=== PATIENT | female | born 1945 | race Caucasian/White ===

== ENCOUNTER 2017-04-12 07:08 | Inpatient (IN) ==
[2017-04-12] MEDS ORDERED: DILTIAZEM 50 MG/10 ML VIAL IV STA (07:24)
[2017-04-12] MEDS ORDERED: DILTIAZEM 100 MG VIAL.ADD IV ONE (07:34)
[2017-04-12] MEDS ORDERED: SODIUM CHLORIDE 0.9% 100 ML IV ONE (07:34)
[2017-04-12] MEDS ORDERED: DILTIAZEM 50 MG/10 ML VIAL IV ONE (07:34)
[2017-04-12 07:37] LABS: Basophils # 0.1 10*3/uL (0.0-0.2); Basophils % 1.1 % (0.0-0.8); Eosinophils # 0.2 10*3/uL (0.0-0.87); Eosinophils % 2.6 % (0.00-10.9); Hemoglobin 14.9 GM/DL (12.0-16.0); Immature Granulocytes % 0.1 %; Immature Granulocytes Absolute 0.01 #; Lymphocytes # 2.8 10*3/uL (1.4-4.0); Mean Corpuscular HGB Conc 34.7 GM/DL (32-36); Mean Corpuscular Hemoglobin 29 PG (27-34); Mean Corpuscular Volume 84.8 FL (87-102); Mean Platelet Volume 11.2 FL (9.6-12.0); Monocytes # 0.7 10*3/uL (0.11-0.8); Monocytes % 9.1 % (1.7-12.7); Neutrophils # 3.8 10*3/uL (1.4-7.4); Neutrophils % 50.1 % (38.7-73.9); Platelet Count 171 T/CUMM (130-400); Red Blood Count 5.07 MC/CUMM (3.8-5.5); Red Cell Distribution Width 12.7 % (9.3-17.3); White Blood Count 7.6 T/CUMM (4-12)
[2017-04-12] MEDS: DILTIAZEM INJ 100 MG in SODIUM CHLORIDE 0.9% 100 ML IV SCH (08:00)
[2017-04-12 08:11] LABS: Alanine Aminotransferase 43 U/L (13-56); Albumin 3.6 G/DL (3.4-5.0); Alkaline Phosphatase 73 U/L (45-117); Aspartate Amino Transferase 31 U/L (0-37); Blood Urea Nitrogen 20 MG/DL (7-18); Calcium 9.1 MG/DL (8.5-10.1); Glucose 107 MG/DL (74-106); Osmolality,Calculated 290.7 MOS/KG (273-304); Potassium 4.2 MMOL/L (3.5-5.1); Sodium 145 MMOL/L (136-145); Total Protein 6.4 G/DL (6.4-8.3); Troponin I Only < 0.015 NG/ML (0.00-0.045)
[2017-04-12] MEDS ORDERED: MORPHINE 2 MG/1 ML SYRINGE IV PRN (08:26)
[2017-04-12] MEDS ORDERED: ZALEPLON 5 MG CAPSULE PO PRN (08:26)
[2017-04-12] MEDS ORDERED: MAGNESIUM SULF RIDER 4 GM in PREMIX 1 EACH IV PRN (08:26)
[2017-04-12] MEDS ORDERED: ONDANSETRON 4 MG/2 ML VIAL IV PRN (08:26)
[2017-04-12] MEDS ORDERED: MAGNESIUM SULF RIDER 2 GM in PREMIX 1 EACH IV PRN (08:26)
[2017-04-12] MEDS ORDERED: DILTIAZEM INJ 100 MG in SODIUM CHLORIDE 0.9% 100 ML IV SCH (08:30)
[2017-04-12 12:15] LABS: Troponin I Only < 0.015 NG/ML (0.00-0.045)
[2017-04-12] MEDS: APIXABAN 5 MG TABLET PO SCH ×2 (12:45→21:36)
[2017-04-12] MEDS: DEXTROSE 5% NACL 0.9% 1,000 ML IV SCH ×2 (12:45→22:54)
[2017-04-12] MEDS: SOTALOL 80 MG TABLET PO SCH ×2 (14:53→21:36)
[2017-04-12 14:57] LABS: Troponin I Only < 0.015 NG/ML (0.00-0.045)
[2017-04-13] MEDS: DILTIAZEM INJ 100 MG in SODIUM CHLORIDE 0.9% 100 ML IV SCH ×2 (05:02→08:47)
[2017-04-13] MEDS: DEXTROSE 5% NACL 0.9% 1,000 ML IV SCH ×2 (05:05→12:27)
[2017-04-13 06:11] LABS: VLDL CHOLESTEROL 43.6 MG/DL
[2017-04-13] MEDS: APIXABAN 5 MG TABLET PO SCH ×2 (09:49→20:28)
[2017-04-13] MEDS: SOTALOL 80 MG TABLET PO SCH ×2 (09:49→20:28)
[2017-04-13] MEDS ORDERED: CETIRIZINE 5 MG TABLET PO PRN (15:30)
[2017-04-13] MEDS ORDERED: diphenhydrAMINE CAP 25 MG CAPSULE PO PRN (16:33)
[2017-04-13] MEDS ORDERED: guaiFENesin/DM ER 600-30 MG TABLET PO PRN (16:33)
[2017-04-13] MEDS ORDERED: BISACODYL 5 MG TABLET PO PRN (16:33)
[2017-04-13] MEDS ORDERED: ACETAMINOPHEN 325 MG TABLET PO PRN (16:33)
[2017-04-13] MEDS: GABAPENTIN 100 MG CAPSULE PO SCH (20:28)
[2017-04-14] MEDS: DEXTROSE 5% NACL 0.9% 1,000 ML IV SCH (00:54)
[2017-04-14 05:40] LABS: Basophils # 0.1 10*3/uL (0.0-0.2); Basophils % 0.8 % (0.0-0.8); Eosinophils # 0.2 10*3/uL (0.0-0.87); Eosinophils % 3.2 % (0.00-10.9); Hematocrit 39.8 VOL% (35.7-47.0); Hemoglobin 13.5 GM/DL (12.0-16.0); Immature Granulocytes % 0.3 %; Immature Granulocytes Absolute 0.02 #; Lymphocytes # 2.9 10*3/uL (1.4-4.0); Lymphocytes % 40.8 % (21.3-54.2); Mean Corpuscular HGB Conc 33.9 GM/DL (32-36); Mean Corpuscular Hemoglobin 29 PG (27-34); Mean Corpuscular Volume 85.4 FL (87-102); Mean Platelet Volume 11.9 FL (9.6-12.0); Monocytes # 0.6 10*3/uL (0.11-0.8); Monocytes % 8.5 % (1.7-12.7); Neutrophils # 3.3 10*3/uL (1.4-7.4); Neutrophils % 46.4 % (38.7-73.9); Platelet Count 165 T/CUMM (130-400); Red Blood Count 4.66 MC/CUMM (3.8-5.5); Red Cell Distribution Width 12.5 % (9.3-17.3); White Blood Count 7.1 T/CUMM (4-12)
[2017-04-14 06:09] LABS: Calcium 8.9 MG/DL (8.5-10.1); Magnesium 2.2 MG/DL (1.8-2.4); Osmolality,Calculated 286.7 MOS/KG (273-304); Potassium 5.2 MMOL/L (3.5-5.1)
[2017-04-14] MEDS: SOTALOL 80 MG TABLET PO SCH (08:49)
[2017-04-14] MEDS: APIXABAN 5 MG TABLET PO SCH (08:49)
[2017-04-14] MEDS: GABAPENTIN 100 MG CAPSULE PO SCH ×2 (08:49→08:51)
[2017-04-14] MEDS: DILTIAZEM INJ 100 MG in SODIUM CHLORIDE 0.9% 100 ML IV SCH (08:50)
[2017-04-14] MEDS ORDERED: GLUCOSAMINE 500 MG TABLET PO SCH (09:00)
[2017-04-14] MEDS ORDERED: OMEGA 3 ACID ETHYL ESTERS 1 GM CAPSULE PO SCH (09:00)
[2017-04-14] MEDS ORDERED: MULTIVITAMIN (BEROCCA) TABLET PO SCH (09:00)
[2017-04-14] MEDS ORDERED: PANTOPRAZOLE 40 MG TABLET PO SCH (09:00)
[2017-04-14] MEDS ORDERED: LEVOTHYROXINE 50 MCG TABLET PO SCH (09:00)
[2017-04-14 12:13] VITALS: BP 120/74
== END 2017-04-14 14:07 | disposition home or self-care (01) | DRG 310 ==
LOC: N.ED 07:08 → N.EDINP 08:26 → N.TELEN 10:17
PROVIDERS: ADMIT Internal Medicine Cardiovascular Disease; ATTEND Internal Medicine Cardiovascular Disease

== ENCOUNTER 2017-07-25 21:21 | Observation (INO) ==
[2017-07-25] MEDS ORDERED: DILTIAZEM 50 MG/10 ML VIAL IV STA (21:50)
[2017-07-25 22:05] LABS: Basophils # 0.1 10*3/uL (0.0-0.2); Basophils % 0.8 % (0.0-0.8); Eosinophils # 0.2 10*3/uL (0.0-0.87); Eosinophils % 1.6 % (0.00-10.9); Hematocrit 41.6 VOL% (35.7-47.0); Hemoglobin 14.1 GM/DL (12.0-16.0); Immature Granulocytes % 0.2 %; Immature Granulocytes Absolute 0.02 #; Lymphocytes # 3.4 10*3/uL (1.4-4.0); Lymphocytes % 32.9 % (21.3-54.2); Mean Corpuscular HGB Conc 33.9 GM/DL (32-36); Mean Corpuscular Hemoglobin 29 PG (27-34); Mean Corpuscular Volume 86.3 FL (87-102); Mean Platelet Volume 11.3 FL (9.6-12.0); Monocytes # 0.9 10*3/uL (0.11-0.8); Monocytes % 8.4 % (1.7-12.7); Neutrophils # 5.8 10*3/uL (1.4-7.4); Neutrophils % 56.1 % (38.7-73.9); Platelet Count 194 T/CUMM (130-400); Red Blood Count 4.82 MC/CUMM (3.8-5.5); Red Cell Distribution Width 12.6 % (9.3-17.3); White Blood Count 10.3 T/CUMM (4-12)
[2017-07-25 22:13] LABS: PT Patient Result 10.1 SECS; Partial Thromboplastin Time 27.9 SECS (0-40)
[2017-07-25 22:40] LABS: Alanine Aminotransferase 36 U/L (13-56); Albumin 3.6 G/DL (3.4-5.0); Alkaline Phosphatase 85 U/L (45-117); Aspartate Amino Transferase 34 U/L (0-37); Bilirubin,Total < 0.39 MG/DL (0.2-1.0); Blood Urea Nitrogen 15 MG/DL (7-18); Glucose 129 MG/DL (74-106); Osmolality,Calculated 281.4 MOS/KG (273-304); Potassium 3.2 MMOL/L (3.5-5.1); Sodium 140 MMOL/L (136-145); Total Protein 6.8 G/DL (6.4-8.3)
[2017-07-25 22:42] LABS: Troponin I Only < 0.015 NG/ML (0.00-0.045)
[2017-07-25 22:48] LABS: T4 (Thyroxine) 10.4 UG/DL (4.7-13.3); Thyroid Stimulating Hormone 2.25 uIU/ml (0.358-3.74)
[2017-07-25] MEDS ORDERED: DILTIAZEM INJ 100 MG in SODIUM CHLORIDE 0.9% 100 ML IV SCH (23:00)
[2017-07-25] MEDS ORDERED: SODIUM CHLORIDE 0.9% 100 ML IV ONE (23:59)
[2017-07-26] MEDS ORDERED: MAGNESIUM SULF RIDER 2 GM in PREMIX 1 EACH IV PRN (00:45)
[2017-07-26] MEDS ORDERED: MAGNESIUM SULF RIDER 4 GM in PREMIX 1 EACH IV PRN (00:45)
[2017-07-26] MEDS ORDERED: ONDANSETRON 4 MG/2 ML VIAL IV PRN (00:45)
[2017-07-26] MEDS ORDERED: POTASSIUM CHLORIDE 20 MEQ TABLET PO STA (00:58)
[2017-07-26] MEDS: PANTOPRAZOLE 40 MG TABLET PO SCH (08:24)
[2017-07-26] MEDS ORDERED: CETIRIZINE 10 MG TABLET PO PRN (12:17)
[2017-07-26] MEDS: SOTALOL 80 MG TABLET PO SCH ×2 (12:46→21:14)
[2017-07-26] MEDS: ESTROGENS (CONJ) 0.3 MG TABLET PO SCH (12:46)
[2017-07-26] MEDS: DILTIAZEM CD 120 MG CAPSULE PO SCH (12:46)
[2017-07-26] MEDS: GABAPENTIN 100 MG CAPSULE PO SCH ×2 (12:47→21:14)
[2017-07-26] MEDS: APIXABAN 5 MG TABLET PO SCH ×2 (12:48→21:14)
[2017-07-26] MEDS: LEVOTHYROXINE 50 MCG TABLET PO SCH (12:48)
[2017-07-26] MEDS: NITROFURANTOIN MACRO/MONO 100 MG CAPSULE PO SCH ×2 (12:48→21:14)
[2017-07-26] MEDS: NAPROXEN 250 MG TABLET PO SCH (21:14)
[2017-07-27] MEDS ORDERED: FOLIC ACID PO SCH (09:00)
[2017-07-27] MEDS ORDERED: CYANOCOBALAMIN PO SCH (09:00)
[2017-07-27] MEDS ORDERED: OMEGA PO SCH (09:00)
[2017-07-27] MEDS ORDERED: DHA PO SCH (09:00)
[2017-07-27] MEDS ORDERED: Gluc Su/Chondro Su A/Vit C/Mn [Glucosamine Chondroitin Tab] 1 EA PO SCH (09:00)
[2017-07-27] MEDS ORDERED: EPA PO SCH (09:00)
[2017-07-27] MEDS ORDERED: PYRIDOXINE PO SCH (09:00)
[2017-07-27] MEDS ORDERED: FISH OIL PO SCH (09:00)
[2017-07-27] MEDS: SOTALOL 80 MG TABLET PO SCH (09:12)
[2017-07-27] MEDS: DILTIAZEM CD 120 MG CAPSULE PO SCH (09:12)
[2017-07-27] MEDS: GABAPENTIN 100 MG CAPSULE PO SCH (09:13)
[2017-07-27] MEDS: APIXABAN 5 MG TABLET PO SCH (09:13)
[2017-07-27] MEDS: NITROFURANTOIN MACRO/MONO 100 MG CAPSULE PO SCH (09:13)
[2017-07-27] MEDS: NAPROXEN 250 MG TABLET PO SCH (09:13)
[2017-07-27] MEDS: ESTROGENS (CONJ) 0.3 MG TABLET PO SCH (09:13)
[2017-07-27] MEDS: PANTOPRAZOLE 40 MG TABLET PO SCH (09:14)
[2017-07-27] MEDS: LEVOTHYROXINE 50 MCG TABLET PO SCH (09:14)
[2017-07-27 11:50] LABS: Apearance,Urine Slightly Hazy (Clear); Bacteria,Urine Occasional /HPF (Few); Bilirubin,Urine Negative (Negative); Blood, Urine Negative (Negative); Glucose,Urine (UA) Negative (Negative); Ketones,Urine Negative (Negative); Mucus,Urine Occasional /LPF (Occasional); Nitrite,Urine Negative (Negative); Protein,Urine Negative; RBC,Urine <1 /HPF (0-4); Squamous Epithelial Cell,Urine Occasional /HPF (0-10); Urine Color Yellow (Yellow); Urine Specific Gravity 1.009 (1.001-1.035); Urine Urobilinogen < 2.0 EU/DL (0.2-1.0); WBC,Urine 1 /HPF (0-6)
[2017-07-27 13:04] VITALS: BP 107/64
[2017-07-27 13:09] LABS: Calcium 8.6 MG/DL (8.5-10.1); Osmolality,Calculated 273.8 MOS/KG (273-304); Potassium 4.8 MMOL/L (3.5-5.1)
[2017-07-27] MEDS ORDERED: SOTALOL 80 MG TABLET PO SCH (21:00)
[2017-07-28] MEDS ORDERED: POTASSIUM CHLORIDE 10 MEQ TABLET PO SCH (09:00)
[2017-07-28] MEDS ORDERED: SOTALOL 80 MG TABLET PO SCH (09:00)
== END 2017-07-27 16:34 | disposition home or self-care (01) ==
LOC: N.ED 21:21 → N.EDINP 21:21 → N.TELEN 23:41
PROVIDERS: ADMIT Internal Medicine Interventional Cardiology; ATTEND Internal Medicine Interventional Cardiology

== ENCOUNTER 2020-03-31 10:07 | Observation (INO) ==
[2020-03-31 10:56] LABS: Basophils # 0.1 10*3/uL (0.0-0.2); Basophils % 0.6 % (0.0-0.8); Eosinophils # 0.1 10*3/uL (0.0-0.87); Eosinophils % 0.7 % (0.00-10.9); Hematocrit 43.2 VOL% (35.7-47.0); Hemoglobin 14.7 GM/DL (12.0-16.0); Immature Granulocytes % 0.3 %; Immature Granulocytes Absolute 0.04 #; Lymphocytes # 3.7 10*3/uL (1.4-4.0); Lymphocytes % 30.4 % (21.3-54.2); Mean Platelet Volume 10.7 FL (9.6-12.0); Monocytes % 8.4 % (1.7-12.7); Neutrophils % 59.6 % (38.7-73.9); Platelet Count 222 T/CUMM (130-400); Red Blood Count 4.91 MC/CUMM (3.8-5.5); Red Cell Distribution Width 13.2 % (9.3-17.3); White Blood Count 12.3 T/CUMM (4-12)
[2020-03-31 11:36] LABS: Albumin 3.3 G/DL (3.4-5.0); Bilirubin,Total 0.6 MG/DL (0.2-1.0); Calcium 9.2 MG/DL (8.5-10.1); Osmolality,Calculated 280.3 MOS/KG (273-304); Potassium 4.5 MMOL/L (3.5-5.1); Thyroid Stimulating Hormone 1.18 uIU/ml (0.358-3.74); Total Protein 6.7 G/DL (6.4-8.3)
[2020-03-31] MEDS ORDERED: SOTALOL 80 MG TABLET PO STA (12:08)
[2020-03-31] MEDS ORDERED: MAGNESIUM SULF RIDER 2 GM in PREMIX 1 EACH IV PRN (12:27)
[2020-03-31] MEDS ORDERED: MAGNESIUM SULF RIDER 4 GM in PREMIX 1 EACH IV PRN (12:27)
[2020-03-31] MEDS ORDERED: CETIRIZINE 5 MG TABLET PO PRN (15:07)
[2020-03-31] MEDS ORDERED: dilTIAZem Drip 125 MG/125 ML PREMIX IV SCH (15:30)
[2020-03-31] MEDS ORDERED: NITROFURANTOIN MACROCRYSTALS 50 MG CAPSULE PO SCH (21:00)
[2020-03-31] MEDS: SOTALOL 80 MG TABLET PO SCH (22:40)
[2020-03-31] MEDS: APIXABAN 5 MG TABLET PO SCH (22:40)
[2020-04-01 05:28] LABS: Basophils # 0.1 10*3/uL (0.0-0.2); Basophils % 0.6 % (0.0-0.8); Eosinophils # 0.1 10*3/uL (0.0-0.87); Eosinophils % 0.8 % (0.00-10.9); Hematocrit 39.1 VOL% (35.7-47.0); Hemoglobin 13.3 GM/DL (12.0-16.0); Immature Granulocytes % 0.3 %; Immature Granulocytes Absolute 0.03 #; Lymphocytes # 3.9 10*3/uL (1.4-4.0); Lymphocytes % 35.3 % (21.3-54.2); Mean Corpuscular Volume 87.7 FL (87-102); Mean Platelet Volume 10.9 FL (9.6-12.0); Monocytes % 8.1 % (1.7-12.7); Neutrophils % 54.9 % (38.7-73.9); Platelet Count 174 T/CUMM (130-400); Red Blood Count 4.46 MC/CUMM (3.8-5.5); Red Cell Distribution Width 13.2 % (9.3-17.3)
[2020-04-01 05:55] LABS: Albumin 2.9 G/DL (3.4-5.0); Bilirubin,Total 0.6 MG/DL (0.2-1.0); Calcium 8.5 MG/DL (8.5-10.1); Osmolality,Calculated 283.1 MOS/KG (273-304); Potassium 3.9 MMOL/L (3.5-5.1); Total Protein 5.9 G/DL (6.4-8.3)
[2020-04-01] MEDS ORDERED: LEVOTHYROXINE 75 MCG TABLET PO SCH (06:30)
[2020-04-01] MEDS ORDERED: SPIRONOLACTONE 50 MG TABLET PO SCH (09:00)
[2020-04-01] MEDS ORDERED: ESTROGENS (CONJ) 0.3 MG TABLET PO SCH (09:00)
[2020-04-01] MEDS ORDERED: EZETIMIBE 10 MG TABLET PO SCH ×2 (09:00→21:00)
[2020-04-01] MEDS: APIXABAN 5 MG TABLET PO SCH (09:34)
[2020-04-01] MEDS: SOTALOL 80 MG TABLET PO SCH (09:34)
[2020-04-01 11:39] VITALS: BP 108/70
[2020-04-03] MEDS ORDERED: ATORVASTATIN 20 MG TABLET PO SCH (15:07)
== END 2020-04-01 15:59 | disposition home or self-care (01) ==
LOC: N.EDINP 10:07 → N.ED 10:07 → N.EDINP 13:35 → N.TELEN 13:49
PROVIDERS: ADMIT Internal Medicine Interventional Cardiology; ATTEND Internal Medicine Interventional Cardiology

== ENCOUNTER 2020-08-12 19:26 | Observation (INO) ==
[2020-08-12] MEDS ORDERED: METOPROLOL TARTRATE 5 MG/5 ML VIAL IV STA (19:57)
[2020-08-12] MEDS ORDERED: SODIUM CHLORIDE 0.9% 500 ML IV STA (19:57)
[2020-08-12 20:04] LABS: Basophils # 0.1 10*3/uL (0.0-0.2); Basophils % 0.7 % (0.0-0.8); Eosinophils # 0.1 10*3/uL (0.0-0.87); Eosinophils % 1.1 % (0.00-10.9); Hematocrit 41.4 VOL% (35.7-47.0); Hemoglobin 13.6 GM/DL (12.0-16.0); Immature Granulocytes % 0.3 %; Immature Granulocytes Absolute 0.03 #; Lymphocytes # 3.5 10*3/uL (1.4-4.0); Lymphocytes % 36.3 % (21.3-54.2); Mean Corpuscular HGB Conc 32.9 GM/DL (32-36); Mean Corpuscular Volume 88.7 FL (87-102); Mean Platelet Volume 11.4 FL (9.6-12.0); Monocytes % 8.2 % (1.7-12.7); Neutrophils % 53.4 % (38.7-73.9); Platelet Count 193 T/CUMM (130-400); Red Blood Count 4.67 MC/CUMM (3.8-5.5); Red Cell Distribution Width 12.9 % (9.3-17.3); White Blood Count 9.6 T/CUMM (4-12)
[2020-08-12 20:22] LABS: Albumin 3.6 G/DL (3.4-5.0); Bilirubin,Total 0.4 MG/DL (0.2-1.0); Calcium 9.1 MG/DL (8.5-10.1); Osmolality,Calculated 281.3 MOS/KG (273-304); Potassium 3.8 MMOL/L (3.5-5.1); Total Protein 7.1 G/DL (6.4-8.2)
[2020-08-12] MEDS ORDERED: DILTIAZEM INJ 100 MG in SODIUM CHLORIDE 0.9% 100 ML IV SCH (22:00)
[2020-08-12] MEDS ORDERED: ONDANSETRON 4 MG/2 ML VIAL IV PRN (22:46)
[2020-08-12] MEDS ORDERED: ACETAMINOPHEN 325 MG TABLET PO PRN (22:46)
[2020-08-12] MEDS ORDERED: DEXTROSE 50% 25 GM/50 ML VIAL IV PRN (22:46)
[2020-08-12] MEDS ORDERED: GLUCAGON 1 MG VIAL IM PRN (22:46)
[2020-08-12] MEDS ORDERED: SOTALOL 80 MG TABLET PO SCH (23:00)
[2020-08-12] MEDS: APIXABAN 5 MG TABLET PO SCH (23:56)
[2020-08-13] MEDS ORDERED: SOTALOL 80 MG TABLET PO SCH (09:00)
[2020-08-13] MEDS: APIXABAN 5 MG TABLET PO SCH (09:36)
[2020-08-13 14:19] VITALS: BP 105/72
== END 2020-08-13 16:10 | disposition home or self-care (01) ==
LOC: N.EDINP 19:26 → N.ED 19:26 → N.EDINP 08-13 16:09
PROVIDERS: ADMIT Internal Medicine; ATTEND Internal Medicine